=== PATIENT | male | born 1975 | race Caucasian/White ===

== ENCOUNTER → 2016-08-27 | Outpatient (CLI) | payer MEDICARE ==
[2016-08-27 15:44] LABS: CH 27.9; HCT 56.2 % (39.0-53.0); HDW 2.86; MCV 87.6 fL (80.0-100.0); Mean Platelet Volume 6.4; RBC 6.42 m/uL (4.30-5.90); RDW 14.4 % (11.5-15.5); WBC 9.3 k/uL (3.8-10.6)
[2016-08-27 15:45] LABS: ALT 36 U/L (21-72); AST 28 U/L (17-59); Alkaline Phosphatase 70 U/L (38-126); Anion Gap 6 mmol/L; Blood Urea Nitrogen 15 mg/dL (9-20); Calcium 9.2 mg/dL (8.4-10.2); Carbon Dioxide 29 mmol/L (22-30); Chloride 105 mmol/L (98-107); Glucose 84 mg/dL (74-99); Non-African American GFR(MDRD) >60 (>60 ml/min/1.73 sqM); Potassium 4.9 mmol/L (3.5-5.1); Sodium 140 mmol/L (137-145); Total Bilirubin 0.9 mg/dL (0.2-1.3); Total Protein 7.1 g/dL (6.3-8.2)
== END | disposition home or self-care (01) ==
LOC: LABWHC1 15:26
PROVIDERS: ATTEND Psychiatry & Neurology Pain Medicine
DX: Z79.891 Long term (current) use of opiate analgesic (principal)
CPT/HCPCS: 36415; 80053; 85027

== ENCOUNTER → 2017-07-08 | Outpatient (CLI) | payer MEDICARE ==
--- NOTE | 2017-07-09 08:33 | US ---
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 0.3 X 0.3 x 0.3 cm hypoechoic mixed nodule at the upper pole with well-defined margins; present with microcalcification. This nodule is wider as is tall and shows no intranodular vascularity. 2. 0.3 X 0.3 x 0.2 cm hyperechoic with posterior shadowing solid nodule at the mid pole with poorly defined margins. This nodule is wider than tall and shows no intranodular vascularity. ISTHMUS: Thickened measuring 1.6 cm possibly containing an isoechoic nodule measuring approximately 1 .3 x 1.3 cm there is ill-defined. This is seen on image 26 only. # of nodules measured in the isthm us: 0 Bilateral neck scanned, lymph node seen superior to right thyroid = 1.4 x 0.7 x 0.6cm and lymph node imaged superior to left thyroid = 1.9 x 1.2 x 0.6cm. IMPRESSION: 1. Enlarged thyroid gland with possible 1.6 cm isoechoic isthmus nodule seen on a single image only f or which short-term surveillance is recommended in 6-12 months. Other subcentimeter left-sided thyroi d nodules measure up to 0.3 cm and are of low suspicion.
== END | disposition home or self-care (01) ==
LOC: RADUSWWP 16:16
PROVIDERS: ATTEND Internal Medicine
DX: E04.2 Nontoxic multinodular goiter (principal)
CPT/HCPCS: 76536

== ENCOUNTER 2018-09-26 20:02 | Emergency (ER) | payer MEDICARE ==
[2018-09-26 20:22] VITALS: TEMP 98.4
--- NOTE | 2018-09-26 22:45 | ED ---
General Adult HPI - General Chief complaint: Extremity Injury, Lower Stated complaint: Leg Pain Time Seen by Provider: 09/26/18 21:15 Source: patient, family, RN notes reviewed, old records reviewed Mode of arrival: wheelchair Limitations: no limitations - History of Present Illness Initial comments: 43-year-old male patient presents ED after sustaining a reported hamstring strain. Patient was that he was moving a fridge when he felt a pull in his right hamstring. This occurred approximately 5 hours prior to evaluation at ER. Patient states that he does feel much better. Patient laboratory but difficulty. Patient does have some soreness and some tightness in his right hamstring region. Patient denies any other complaints, denies any other injury. Denies any chest pain shortness breath abdominal pain, nausea vomiting or diarrhea. Systemic: Pt denies fatigue, fever/chills, rash. Pt denies weakness, night sweats, weight loss. Neuro: Pt denies headache, visual disturbances, syncope or pre-syncope. HEENT: Pt denies ocular discharge or irritation, otalgia, rhinorrhea, pharyngitis or notable lymphadenopathy. Cardiopulmonary: Pt denies chest pain, SOB, heart palpitations, dyspnea on exertion. Abdominal/GI: Pt denies abdominal pain, n/v/d. : Pt denies dysuria, burning w/ urination, frequency/urgency. Denies new onset urinary or bowel incontinence. MSK: Pt denies loss of strength or function in extremities. Neuro: Pt denies new onset weakness, paresthesias. - Related Data Home Medications Medication Instructions Recorded Confirmed Clobetasol Propionate [Clobex 1 spray TOPICAL 03/06/16 [place] 0.05%] DULoxetine HCL [Cymbalta] 60 mg PO DAILY 03/06/16 03/06/16 Desmopressin Acetate [DDAVP] 0.1 mg PO 03/06/16 Fluticasone/Salmeterol [Advair 1 inhalation PO BID 03/06/16 03/06/16 250-50 [place]] Levothyroxine Sodium [Levoxyl] 88 mcg PO DAILY 03/06/16 03/06/16 Omeprazole 20 mg PO DAILY 03/06/16 03/06/16 Testosterone [Testopel] 75 mg INTRADERMA [id number] 03/06/16 03/06/16 Previous Rx's Medication Instructions Recorded HYDROcodone/APAP 5-325MG [[place] 5] 1 each PO Q4HR PRN #20 tab 03/06/16 Naproxen [Naprosyn] 500 mg PO Q12HR #24 tab 03/06/16 Allergies Allergy/AdvReac Type Severity Reaction Status Date / Time fluvastatin [From Lescol] Allergy Anaphylaxis Verified 09/26/18 20:22 prochlorperazine Allergy Unknown Verified 09/26/18 20:22 [From Compazine] Childhood Review of Systems ROS Statement: Those systems with pertinent positive or pertinent negative responses have been documented in the HPI. ROS Other: All systems not noted in ROS Statement are negative. Past Medical History Past Medical History: Diabetes Mellitus, Hypertension Additional Past Medical History / Comment(s): diabetes insipidus , histiocytosis X, low testosterone History of Any Multi-Drug Resistant Organisms: None Reported Past Surgical History: Appendectomy, Tonsillectomy Additional Past Surgical History / Comment(s): Port ( removal) cord still intact, jaw surgery Past Psychological History: Anxiety Smoking Status: Never smoker Past Alcohol Use History: Occasional Past Drug Use History: Marijuana General Exam - General Exam Comments Initial Comments: Constitutional: NAD, AOX3, Pt has pleasant affect. HEENT: NC/AT, trachea midline, neck supple, no lymphadenopathy. Posterior pharynx non erythematous, without exudates. External ears appear normal, without discharge. Mucous membranes moist. Eyes PERRLA, EOM intact. There is no scleral icterus. No pallor noted. Cardiopulmonary: RRR, no murmurs, rubs or gallops, no JVD noted. Lungs CTAB in anterior and posterior bartlett. No peripheral edema. Abdominal exam: Abdomen soft and non-distended. Abdomen non-tender to palpation in all 4 quadrants. Bowel sounds active in LLQ. No hepatosplenomegaly. No ecchymosis Neuro: CN II-XII grossly intact. No nuchal rigidity. MSK: Right hamstring region mildly tender to palpation, no ecchymoses. Full active range of motion of limp. Distal pulses intact and equal. Patient ambulatory without difficulty. No posterior calf tenderness bilaterally, homans sign negative bilaterally. Posterior tibialis and radial pulse +2 bilaterally. Sensation intact in upper and lower extremities. Full active ROM in upper and lower extremities, 5/5 stregnth. Limitations: no limitations Course Vital Signs 09/26/18 09/26/18 20:20 22:58 Temperature 98.4 F Pulse Rate 97 89 Respiratory 20 16 Rate Blood Pressure 136/88 123/86 O2 Sat by Pulse 98 97 Oximetry Medical Decision Making - Medical Decision Making 43-year-old male patient presents ED after sustaining a reported hamstring strain. Patient was that he was moving a fridge when he felt a pull in his right hamstring. This occurred approximately 5 hours prior to evaluation at ER. Patient states that he does feel much better. Patient laboratory but difficulty. Patient does have some soreness and some tightness in his right hamstring region. Patient denies any other complaints, denies any other injury. Denies any chest pain shortness breath abdominal pain, nausea vomiting or diarrhea. Patient vitals signs stable, afebrile. Physical exam displayed: Right hamstring region mildly tender to palpation, no ecchymoses. Full active range of motion of limp. Distal pulses intact and equal. Patient ambulatory without difficulty. Chair decision making patient comfortable with no imaging. Patient discharged, will use crutches will not bear weight on right lower extremity. Patient will follow-up with orthopedic consult. Patient return to ER if condition worsens. Disposition Clinical Impression: Muscle strain, Myalgia Disposition: HOME SELF-CARE Condition: Stable Instructions (If sedation given, give patient instructions): Muscle Strain (ED) Additional Instructions: Patient to adhere to previously discussed treatment plan and will take medication(s) as directed. Patient to follow up with PCP in 1-2 days. Patient to return to ED if symptoms do not improve. Follow-up with primary care provider orthopedic consult 1-2 days. Return to ER if condition worsens in any way. Limit weightbearing on right lower extremity. Use crutches. Is patient prescribed a controlled substance at d/c from ED?: No Referrals: Sotero Lozano MD [Primary Care Provider] - 1-2 days Amish Lazar MD [Medical Doctor] - 1-2 days
[2018-09-26 23:06] VITALS: BP 123/86; PULSE 89; RESP 16
== END 2018-09-26 22:58 | disposition home or self-care (01) ==
LOC: EC 20:02
DX: S76.311A Strain of muscle, fascia and tendon of the posterior muscle group at thigh level, right thigh, initial encounter (principal); E11.9 Type 2 diabetes mellitus without complications; F41.9 Anxiety disorder, unspecified; Z79.52 Long term (current) use of systemic steroids; Z79.890 Hormone replacement therapy; Z79.84 Long term (current) use of oral hypoglycemic drugs; Z79.899 Other long term (current) drug therapy; Z88.8 Allergy status to other drugs, medicaments and biological substances; X50.9XXA Other and unspecified overexertion or strenuous movements or postures, initial encounter; Y93.89 Activity, other specified
CPT/HCPCS: 99283

== ENCOUNTER → 2022-03-31 | Outpatient (CLI) | payer BC, MEDICARE ==
--- NOTE | 2022-04-01 09:28 | CA ---
Transthoracic Echo Report Name: Hank Payne Age: 47 Gender: M : 1975 Exam Date: 03/31/2022 15:09 Exam Location: [facility] Ht (in): 62 Wt (lb): 290 Ordering Physician: Wilfred Weinberg DO Attending/Referring Phys: Ruthy Macias [facility] [employer] Exp[employer] Maker Hand Jordyn Morel, ROM Procedure CPT: Indications: R01.1 CARDIAC MURMUR, UNSPECIFIED Cardiac Hx: Technical Quality: Fair Contrast 1: Total Dose (mL): Contrast 2: Total Dose (mL): MEASUREMENTS (Male / Female) Normal Values 2D ECHO LV Diastolic Diameter PLAX 4.3 cm 4.2 - 5.9 / 3.9 - 5.3 cm LV Systolic Diameter PLAX 2.9 cm IVS Diastolic Thickness 1.5 cm 0.6 - 1.0 / 0.6 - 0.9 cm LVPW Diastolic Thickness 1.8 cm 0.6 - 1.0 / 0.6 - 0.9 cm LV Relative Wall Thickness 0.8 RV Internal Dim ED PLAX 3.7 cm LA Systolic Diameter LX 4.0 cm 3.0 - 4.0 / 2.7 - 3.8 cm M-MODE Aortic Root Diameter MM 3.6 cm LA Systolic Diameter MM 3.5 cm LA Ao Ratio MM 1.0 MV E Point Septal Separation 0.1 cm AV Cusp Separation MM 2.4 cm DOPPLER TR Peak Velocity 393.1 cm/s TR Peak Gradient 61.8 mmHg Right Ventricular Systolic Press 66.0 mmHg FINDINGS Left Ventricle Moderately increased septal wall thickness. Left ventricular ejection fraction is estimated at 50 %. Right Ventricle Moderate right ventricular dilatation. Moderate to severe pulmonary hypertension. Right ventricular systolic pressure estimated at 66 mm hg. right ventricle has lot of trabeculations Right Atrium Normal right atrial size. Left Atrium Normal left atrial size. Mitral Valve Structurally normal mitral valve. Mild mitral regurgitation. Aortic Valve Trileaflet aortic valve. Tricuspid Valve Structurally normal tricuspid valve. Mild tricuspid regurgitation. Pulmonic Valve Structurally normal pulmonic valve. Pericardium Echo free space anterior to the right ventricle likely represents a fat pad. Aorta Normal size aortic root and proximal ascending aorta. CONCLUSIONS LV systolic function is fairly well-preserved. Right ventricle is enlarged with locked of trabeculations. There is moderate to severe pulmonary hypertension. Valve structures are normal. There is probably a fat pad but no clearcut pericardial effusion Previewed by: Dr. Anthony Jolley MD (Electronically Signed) Final Date: 01 April 2022 09:27
== END | disposition home or self-care (01) ==
LOC: RADECHMAIN 15:00
PROVIDERS: ATTEND Family Medicine
DX: I27.20 Pulmonary hypertension, unspecified (principal); R01.1 Cardiac murmur, unspecified
CPT/HCPCS: 93306

== ENCOUNTER 2024-03-03 20:28 | Inpatient (IN) | payer MEDICARE, BC ==
--- NOTE | 2024-03-03 20:39 | ED ---
SOB HPI - General Chief Complaint: Shortness of Breath Stated Complaint: Covid +, SOB Time Seen by Provider: 03/03/24 20:38 Source: patient, RN notes reviewed, old records reviewed Mode of arrival: ambulatory Limitations: no limitations - History of Present Illness Initial Comments: This is a 48-year-old male to the ER for evaluation known recent diagnosis of coronavirus and severe shortness of breath here in the emergency department. No history of asthma COPD or CHF Patient is found to have low oxygen here in the ER MD Complaint: shortness of breath, cough -: days(s) Radiation: back Severity: moderate Severity scale (1-10): 4 Quality: aching Consistency: constant Improves With: nothing Worsens With: nothing Known History Of: COPD, asthma Context: recent URI - Related Data Home Medications Medication Instructions Recorded Confirmed DULoxetine HCL [Cymbalta] 60 mg PO DAILY 03/06/16 03/04/24 Cholecalciferol (Vitamin D3) 125 mcg PO DAILY 07/01/22 03/04/24 [Vitamin D3 (125 MCG = 5,000 IU)] HYDROcodone/APAP 10-325MG [[place] 1 tab PO DAILY 07/01/22 03/04/24 10-325] Naproxen [Naprosyn] 500 mg PO DIRECTED PRN 07/01/22 03/04/24 Testosterone Cypionate 150 mg IM Q14D 07/01/22 03/04/24 [Depo-Testosterone] clonazePAM [KlonoPIN] 0.5 mg PO BID PRN 07/01/22 03/04/24 Clobetasol Lotion 0.05% Lotion 1 applic TOPICAL DAILY PRN 03/04/24 03/04/24 Desmopressin Intranasal [Ddavp 2 spr NASAL Q8H 03/04/24 03/04/24 Nasal [place]] Dextroamphetamine/Amphetamine 15 mg PO DAILY 03/04/24 03/04/24 [Adderall Xr 15 mg Capsule] Esomeprazole Magnesium [NexIUM 40 mg PO DAILY 03/04/24 03/04/24 24Hr] HYDROcodone/APAP 10-325MG [[place] 1 tab PO BID PRN 03/04/24 03/04/24 10-325] Lactulose [Constulose] 10 gm PO DAILY PRN 03/04/24 03/04/24 Levothyroxine Sodium 88 mcg PO DAILY 03/04/24 03/04/24 Losartan Potassium 100 mg PO DAILY 03/04/24 03/04/24 Metoclopramide [Reglan] 10 mg PO BID 03/04/24 03/04/24 Metoprolol Succinate (ER) [Toprol 50 mg PO DAILY 03/04/24 03/04/24 XL] Semaglutide [Ozempic] 1 mg SQ DIRECTED 03/04/24 03/04/24 Slow-Mag 2000mg 2,000 mg PO DAILY 03/04/24 03/04/24 bisacodyL [Dulcolax] 15 mg PO DAILY 03/04/24 03/04/24 guaiFENesin [Mucinex] 1,200 mg PO BID 03/04/24 03/04/24 Previous Rx's Medication Instructions Recorded dexAMETHasone ORAL [Hexadrol] 6 mg PO DAILY #6 tab 03/05/24 Allergies Allergy/AdvReac Type Severity Reaction Status Date / Time fluvastatin [From Lescol] Allergy Anaphylaxis Verified 03/04/24 11:23 prochlorperazine AdvReac "Maureen" Verified 03/04/24 11:23 [From Compazine] Rrbzluq-ETP-QpE Reductase AdvReac rhabdomyoly Verified 03/04/24 11:23 Inhibitor sis Review of Systems ROS Statement: Those systems with pertinent positive or pertinent negative responses have been documented in the HPI. ROS Other: All systems not noted in ROS Statement are negative. Past Medical History Past Medical History: Diabetes Mellitus, GERD/Reflux, Hyperlipidemia, Hypertension, Pneumonia, Thyroid Disorder Additional Past Medical History / Comment(s): See Dr Hernandez's H&P. 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 Low testosterone. Right ventricle enlarged. H Pylori X2. Hx rhabdomyolysis 10 yrs ago. History of Any Multi-Drug Resistant Organisms: None Reported Past Surgical History: Appendectomy, Tonsillectomy Additional Past Surgical History / Comment(s): Port in chest placed and then removed, but only able to remove head of sales, cord still intact, jaw surgery. Past Anesthesia/Blood Transfusion Reactions: No Reported Reaction, Motion Sickness Past Psychological History: Anxiety Smoking Status: Former smoker Past Alcohol Use History: Rare Past Drug Use History: Marijuana - Past Family History Father Family Medical History: Cancer Additional Family Medical History / Comment(s): Prostate cancer. General Exam General appearance: alert, in no apparent distress Head exam: Present: atraumatic, normocephalic, normal inspection Eye exam: Present: normal appearance, PERRL, EOMI. Absent: scleral icterus, conjunctival injection, periorbital swelling ENT exam: Present: normal exam, mucous membranes moist Neck exam: Present: normal inspection. Absent: tenderness, meningismus, lymphadenopathy Respiratory exam: Present: normal lung sounds bilaterally. Absent: respiratory distress, wheezes, rales, rhonchi, stridor Cardiovascular Exam: Present: regular rate, normal rhythm, normal heart sounds. Absent: systolic murmur, diastolic murmur, rubs, gallop, clicks GI/Abdominal exam: Present: soft, normal bowel sounds. Absent: distended, tenderness, guarding, rebound, rigid Extremities exam: Present: normal inspection, full ROM, normal capillary refill. Absent: tenderness, pedal edema, joint swelling, calf tenderness Back exam: Present: normal inspection Neurological exam: Present: alert, oriented X3, CN II-XII intact Psychiatric exam: Present: normal affect, normal mood Skin exam: Present: warm, dry, intact, normal color. Absent: rash Course Vital Signs 03/03/24 03/03/24 03/03/24 20:30 20:33 21:45 Temperature 98.5 F Pulse Rate 85 78 Respiratory 18 20 20 Rate Blood Pressure 129/77 118/78 O2 Sat by Pulse 89 L 94 L Oximetry - Reevaluation(s) Reevaluation #1: 03/03/24 20:55 Medical records reviewed Reevaluation #2: 03/03/24 21:39 No real improvement in symptoms here in the ER mildly improvement in oxygen level on supplemental O2 Reevaluation #3: 03/03/24 21:39 Patient informed of results and questions answered Reevaluation #4: Was pt. sent in by a medical professional or institution (, PA, STOPER, urgent care, hospital, or fci...) When possible be specific @ -no Did you speak to anyone other than the patient for history (EMS, parent, family, police, friend...)? What history was obtained from this source @ -no Did you review nursing and triage notes (agree or disagree)? Why? @ -agree Are old charts reviewed (outside hosp., previous admission, EMS record, old EKG, old radiological studies, urgent care reports/EKG's, fci records)? Report findings @ -yes Differential Diagnosis (chest pain, altered mental status, abdominal pain women, abdominal pain men, vaginal bleeding, weakness, fever, dyspnea, syncope, headache, dizziness, GI bleed, back pain, seizure, CVA, palpatations, mental health, musculoskeletal)? @ -prior EKG interpreted by me (3pts min.). @ -yes X-rays interpreted by me (1pt min.). @ -yes significant pulmonary edema CT interpreted by me (1pt min.). @ -Yes for significant pulmonary edema U/S interpreted by me (1pt. min.). @ -no What testing was considered but not performed or refused? (CT, X-rays, U/S, labs)? Why? @ -none What meds were considered but not given or refused? Why? @ -none Did you discuss the management of the patient with other professionals (professionals i.e. , PA, STOPER, lab, RT, psych nurse, long term care social worker, plastic parts fabricator, teacher, disciplinary hearing officer, case supervisor)? Give summary @ -no Was smoking cessation discussed for >3mins.? @ -no Was critical care preformed (if so, how long)? @ -yes31 Were there social determinants of health that impacted care today? How? (Homelessness, low income, unemployed, alcoholism, drug addiction, transportation, low edu. Level, literacy, decrease access to med. care, longterm, rehab)? @ -none Was there de-escalation of care discussed even if they declined (Discuss DNR or withdrawal of care, Hospice)? DNR status @ -no What co-morbidities impacted this encounter? (DM, HTN, Smoking, COPD, CAD, Cancer, CVA, ARF, Chemo, Hep., AIDS, mental health diagnosis, sleep apnea, morbid obesity)? @ -none Was patient admitted / discharged? Hospital course, mention meds given and route, prescriptions, significant lab abnormalities, going to OR and other pertinent info. @ - 48 male with positive coronavirus found to be hypoxic here in the ER multifocal pneumonia on x-ray Admitted Undiagnosed new problem with uncertain prognosis? @ -no Drug Therapy requiring intensive monitoring for toxicity (Heparin, Nitro, Insulin, Cardizem)? @ -no Were any procedures done? @ -no Diagnosis/symptom? @ - Acute, or Chronic, or Acute on Chronic? @ -Acute Uncomplicated (without systemic symptoms) or Complicated (systemic symptoms)? @ -Complicated Side effects of treatment? @ -no Exacerbation, Progression, or Severe Exacerbation? @ -exacerbation Poses a threat to life or bodily function? How? (Chest pain, [place], [place], pneumonia, PE, COPD, DKA, ARF, appy, cholecystitis, CVA, Diverticulitis, Homicidal, Suicidal, threat to staff... and all critical care pts) @ -yes respiratory failure and hypoxia Reevaluation #5: Differential Dyspnea: Coronary syndrome, arrhythmia, tamponade, asthma, COPD, pulmonary embolism, pneumonia, pneumothorax, pulmonary effusion, anaphylaxis, diabetic ketoacidosis, flailed chest, pulmonary contusion, diaphragmatic rupture, anemia, neuromuscular, this is not meant to be an all-inclusive list. - Consultations Consultation #1: Spoke with [facility] who agrees to admit this patient Medical Decision Making - Medical Decision Making 48 male with positive coronavirus found to be hypoxic here in the ER multifocal pneumonia on x-ray - Lab Data Result diagrams: 03/05/24 06:39 03/05/24 06:39 Lab Results 03/03/24 03/03/24 03/03/24 Range/Units 20:38 20:38 20:38 WBC 6.5 (3.8-10.6) k/uL RBC 5.65 (4.30-5.90) m/uL Hgb 16.5 (13.0-17.5) gm/dL Hct 52.1 (39.0-53.0) % MCV 92.3 (80.0-100.0) fL MCH 29.2 (25.0-35.0) pg MCHC 31.6 (31.0-37.0) g/dL RDW 13.9 (11.5-15.5) % Plt Count 225 (150-450) k/uL MPV 7.1 Neutrophils % 65 % Lymphocytes % 20 % Monocytes % 8 % Eosinophils % 4 % Basophils % 1 % Neutrophils # 4.2 (1.3-7.7) k/uL Lymphocytes # 1.3 (1.0-4.8) k/uL Monocytes # 0.5 (0-1.0) k/uL Eosinophils # 0.3 (0-0.7) k/uL Basophils # 0.0 (0-0.2) k/uL Hypochromasia Slight PT 10.2 (10.0-12.5) sec INR 0.9 (<1.2) APTT 30.7 H (22.0-30.0) sec D-Dimer 0.72 H (<0.60) mg/L FEU Sodium 139 (137-145) mmol/L Potassium 4.6 (3.5-5.1) mmol/L Chloride 107 (98-107) mmol/L Carbon Dioxide 28 (22-30) mmol/L Anion Gap 4 mmol/L BUN 19 (9-20) mg/dL Creatinine 0.93 (0.66-1.25) mg/dL Est GFR (CKD-EPI)AfAm >90 (>60 ml/min/1.73 sqM) Est GFR (CKD-EPI)NonAf >90 (>60 ml/min/1.73 sqM) Glucose 94 (74-99) mg/dL Plasma Lactic Acid Koby (0.7-2.0) mmol/L Calcium 8.7 (8.4-10.2) mg/dL Magnesium 2.0 (1.6-2.3) mg/dL Total Bilirubin 0.7 (0.2-1.3) mg/dL AST 34 (17-59) U/L ALT 22 (4-49) U/L Alkaline Phosphatase 82 (38-126) U/L Troponin I (0.000-0.034) ng/mL NT-Pro-B Natriuret Pep 167 pg/mL Total Protein 6.5 (6.3-8.2) g/dL Albumin 3.7 (3.5-5.0) g/dL 03/03/24 03/03/24 Range/Units 20:38 20:38 WBC (3.8-10.6) k/uL RBC (4.30-5.90) m/uL Hgb (13.0-17.5) gm/dL Hct (39.0-53.0) % MCV (80.0-100.0) fL MCH (25.0-35.0) pg MCHC (31.0-37.0) g/dL RDW (11.5-15.5) % Plt Count (150-450) k/uL MPV Neutrophils % % Lymphocytes % % Monocytes % % Eosinophils % % Basophils % % Neutrophils # (1.3-7.7) k/uL Lymphocytes # (1.0-4.8) k/uL Monocytes # (0-1.0) k/uL Eosinophils # (0-0.7) k/uL Basophils # (0-0.2) k/uL Hypochromasia PT (10.0-12.5) sec INR (<1.2) APTT (22.0-30.0) sec D-Dimer (<0.60) mg/L FEU Sodium (137-145) mmol/L Potassium (3.5-5.1) mmol/L Chloride (98-107) mmol/L Carbon Dioxide (22-30) mmol/L Anion Gap mmol/L BUN (9-20) mg/dL Creatinine (0.66-1.25) mg/dL Est GFR (CKD-EPI)AfAm (>60 ml/min/1.73 sqM) Est GFR (CKD-EPI)NonAf (>60 ml/min/1.73 sqM) Glucose (74-99) mg/dL Plasma Lactic Acid Koby 1.3 (0.7-2.0) mmol/L Calcium (8.4-10.2) mg/dL Magnesium (1.6-2.3) mg/dL Total Bilirubin (0.2-1.3) mg/dL AST (17-59) U/L ALT (4-49) U/L Alkaline Phosphatase (38-126) U/L Troponin I <0.012 (0.000-0.034) ng/mL NT-Pro-B Natriuret Pep pg/mL Total Protein (6.3-8.2) g/dL Albumin (3.5-5.0) g/dL - EKG Data -: EKG Interpreted by Me (EKG is sinus 81 [place] 131 QRS 136 QTc 430) - Radiology Data Radiology results: report reviewed (CXR positive for pneumonia), image reviewed Critical Care Time Critical Care Time: Yes Total Critical Care Time: 31 Disposition Clinical Impression: Coronavirus infection, Hypoxia, Multifocal pneumonia Disposition: ADMITTED IP TO THIS HOSP Condition: Good Is patient prescribed a controlled substance at d/c from ED?: No
[2024-03-03] MEDS: IPRATROPIUM-ALBUTEROL 3 ML NEB INHALATION STA (21:13)
[2024-03-03] MEDS: ALBUTEROL HFA INHALER INHALATION STA (21:15)
--- NOTE | 2024-03-03 21:15 | XR ---
EXAMINATION TYPE: XR chest 1V portable DATE OF EXAM: 03/03/2024 9:07 PM COMPARISON: Chest radiographs from 03/06/2016. CLINICAL INDICATION: Male, 48 years old with history of sob; [facility] TECHNIQUE: XR chest 1V portable Frontal view of the chest. FINDINGS: Lungs/Pleura: Scattered subtle reticular and hazy opacities. No evidence of pneumothorax, focal conso lidation or pleural effusion. Pulmonary vascularity: Unremarkable. Heart/mediastinum: Cardiomediastinal silhouette is unremarkable. Musculoskeletal: No acute osseous pathology. Other findings: None Lines/Tubes: Right central venous catheter with tip to be in the superior vena cava. IMPRESSION: Multifocal airspace opacities concerning for pneumonia. [facility], , 03/03/2024 9:13 PM
[2024-03-03 21:30] LABS: Basophils % (A) 1 %; Eosinophils # (A) 0.3 k/uL (0-0.7); Eosinophils % (A) 4 %; HCT 52.1 % (39.0-53.0); HGB 16.5 gm/dL (13.0-17.5); Hypochromasia Slight; Lymphocytes # (A) 1.3 k/uL (1.0-4.8); Lymphocytes % (A) 20 %; MCH 29.2 pg (25.0-35.0); MCHC 31.6 g/dL (31.0-37.0); MCV 92.3 fL (80.0-100.0); Mean Platelet Volume 7.1; Monocytes # (A) 0.5 k/uL (0-1.0); Monocytes % (A) 8 %; Neutrophils # (A) 4.2 k/uL (1.3-7.7); Neutrophils % (A) 65 %; Platelet Count 225 k/uL (150-450); RBC 5.65 m/uL (4.30-5.90); RDW 13.9 % (11.5-15.5); WBC 6.5 k/uL (3.8-10.6)
[2024-03-03] MEDS ORDERED: MORPHINE SULFATE 4 MG/ML SYRINGE IV PRN (21:36)
[2024-03-03] MEDS ORDERED: ONDANSETRON 4 MG/2 ML VIAL IVP PRN (21:36)
[2024-03-03] MEDS ORDERED: NALOXONE 0.4 MG/ML 1 ML VIAL IV PRN (21:36)
[2024-03-03] MEDS: SODIUM CHLORIDE 0.9% 1,000 ML IV STA (21:40)
[2024-03-03] MEDS: SODIUM CHLORIDE 0.9% 1,000 ML IV SCH (21:43)
[2024-03-03] MEDS: ACETAMINOPHEN TAB 500 MG TAB PO STA (21:50)
[2024-03-03] MEDS: DEXAMETHASONE SOD PHOSPHATE 10 MG/ML 1 ML VIAL IVP STA (21:51)
[2024-03-03] MEDS: KETOROLAC 15 MG/ML 1 ML VIAL IVP STA (21:51)
[2024-03-03 21:59] LABS: ALT 22 U/L (4-49); AST 34 U/L (17-59); African American GFR (CKD) >90 (>60 ml/min/1.73 sqM); Albumin 3.7 g/dL (3.5-5.0); Alkaline Phosphatase 82 U/L (38-126); Anion Gap 4 mmol/L; Blood Urea Nitrogen 19 mg/dL (9-20); Calcium 8.7 mg/dL (8.4-10.2); Carbon Dioxide 28 mmol/L (22-30); Chloride 107 mmol/L (98-107); Glucose 94 mg/dL (74-99); Non-African American GFR(CKD) >90 (>60 ml/min/1.73 sqM); Potassium 4.6 mmol/L (3.5-5.1); Sodium 139 mmol/L (137-145); Total Bilirubin 0.7 mg/dL (0.2-1.3); Total Protein 6.5 g/dL (6.3-8.2)
[2024-03-03 22:00] LABS: INR 0.9 (<1.2); Partial Thromboplastin Time 30.7 sec (22.0-30.0); Prothrombin Time 10.2 sec (10.0-12.5)
[2024-03-03 22:05] LABS: NT-Pro-B-Type Natriuretic Pept 167 pg/mL
--- NOTE | 2024-03-03 23:16 | CT ---
EXAMINATION TYPE: CT angio chest DATE OF EXAM: 03/03/2024 COMPARISON: NONE HISTORY: Patient states he is coming to facility with complaints of SOB. Patient was diagnosed with C OVID on Wednesday. CT DLP: 1181.6 mGycm. Automated Exposure Control for Dose Reduction was Utilized. CONTRAST: CTA scan of the thorax is performed with IV Contrast, patient injected with 100 mL of Isovue 370, pul monary embolism protocol. MIP Images are created on CT scanner and reviewed. FINDINGS: LUNGS: Reticular increased opacities bilateral upper lobes with some areas of groundglass opacity are present. Similar findings seen in the lower lungs greatest posterior left lower lobe. Mosaic attenua tion is present. No pleural effusion or pneumothorax. Focal consolidation central left lower lobe axi al image 102 MEDIASTINUM: Suboptimal study with most dense contrast in the SVC but no convincing CT evidence for a cute pulmonary embolism. There is bilateral hilar adenopathy. There is enlarged 4.2 x 1.5 cm prevascu lar lymph node axial image 46. Enlarged main pulmonary artery of 3.8 cm axial image 60 suggesting und erlying pulmonary artery hypertension. Some enhancement of the aorta without aneurysm or dissection. No cardiomegaly or pericardial effusion. OTHER: Bilateral gynecomastia. Slight scoliotic curvature with bridging osteophytes in the thoracic s pine noted. IMPRESSION: 1. Suboptimal study without acute pulmonary embolism. 2. Overall mosaic attenuation with bilateral areas of groundglass opacity could reflect infiltrate an d/or edema. There is area of more focal consolidation in the left lower lobe noted. There are bilater al upper lung reticular opacities and posterior left lower lobe reticular opacity could reflect atypi tosin infiltrate versus scarring. No prior for comparison. Abnormal thoracic adenopathy is favored reac tive. [facility], , 03/03/2024 11:14 PM
[2024-03-04] MEDS: DEXAMETHASONE SOD PHOSPHATE 4 MG/ML 1 ML VIAL IVP SCH (00:01)
[2024-03-04 06:15] LABS: Glucose,Whole Blood 171 mg/dL (70-110)
[2024-03-04] MEDS ORDERED: DEXTROSE 50% SYRINGE 50 ML IVP PRN ×2 (07:04)
[2024-03-04 07:05] LABS: Basophils % (A) 0 %; Eosinophils % (A) 0 %; HCT 49.8 % (39.0-53.0); HGB 15.9 gm/dL (13.0-17.5); Hypochromasia Slight; Lymphocytes # (A) 0.6 k/uL (1.0-4.8); Lymphocytes % (A) 13 %; MCH 29.4 pg (25.0-35.0); MCV 91.9 fL (80.0-100.0); Mean Platelet Volume 7.5; Monocytes # (A) 0.1 k/uL (0-1.0); Monocytes % (A) 3 %; Neutrophils # (A) 3.7 k/uL (1.3-7.7); Neutrophils % (A) 83 %; Platelet Count 226 k/uL (150-450); RBC 5.42 m/uL (4.30-5.90); WBC 4.4 k/uL (3.8-10.6)
[2024-03-04] MEDS ORDERED: HYDROcodone/APAP 10-325MG 1 EACH TAB PO PRN (07:05)
[2024-03-04] MEDS ORDERED: clonazePAM 0.5 MG TAB PO PRN (07:05)
[2024-03-04] MEDS ORDERED: NAPROXEN 250 MG TAB PO PRN (07:05)
--- NOTE | 2024-03-04 07:24 | XR ---
EXAMINATION TYPE: XR chest 1V DATE OF EXAM: 03/04/2024 6:54 AM COMPARISON: Chest radiographs from 03/03/2024 CLINICAL INDICATION: Male, 48 years old with history of hypoxia; TECHNIQUE: XR chest 1V Frontal view of the chest. FINDINGS: Lungs/Pleura: Multifocal airspace opacities. No evidence of pneumothorax or pleural effusion. Pulmonary vascularity: Pulmonary vascular congestion. Heart/mediastinum: Cardiomediastinal silhouette is prominent in size. Musculoskeletal: No acute osseous pathology. Other findings: None Lines/Tubes: Right internal jugular central venous catheter with distal tip at the cavoatrial junction. IMPRESSION: Similar multifocal airspace opacities. Correlate for atypical pneumonia versus pulmonary edema. [facility], Workstation: [id number], 03/04/2024 7:22 AM
[2024-03-04 08:06] LABS: ALT 21 U/L (4-49); AST 33 U/L (17-59); African American GFR (CKD) >90 (>60 ml/min/1.73 sqM); Albumin 3.6 g/dL (3.5-5.0); Alkaline Phosphatase 72 U/L (38-126); Anion Gap 6 mmol/L; Blood Urea Nitrogen 22 mg/dL (9-20); Calcium 8.5 mg/dL (8.4-10.2); Carbon Dioxide 24 mmol/L (22-30); Chloride 106 mmol/L (98-107); Glucose 170 mg/dL (74-99); Non-African American GFR(CKD) >90 (>60 ml/min/1.73 sqM); Potassium 5.3 mmol/L (3.5-5.1); Sodium 136 mmol/L (137-145); Total Bilirubin 0.5 mg/dL (0.2-1.3); Total Protein 6.2 g/dL (6.3-8.2)
[2024-03-04 09:04] LABS: Phosphorus 2.9 mg/dL (2.5-4.5)
[2024-03-04] MEDS: INSULIN ASPART (NovoLOG) 100 UNIT/ML VIAL SQ SCH (09:39)
[2024-03-04] MEDS ORDERED: BENZOCAINE/MENTHOL LOZENG 1 EACH LOZENGE MUCOUS MEM PRN (09:42)
[2024-03-04] MEDS ORDERED: DEXAMETHASONE SOD PHOSPHATE 10 MG/ML 1 ML VIAL IVP SCH (10:00)
[2024-03-04] MEDS: PANTOPRAZOLE 40 MG/10 ML VIAL IV SCH (10:52)
[2024-03-04] MEDS: ENOXAPARIN 40 MG/0.4 ML SYRINGE SQ SCH (10:52)
[2024-03-04] MEDS: DULoxetine HCL 60 MG CAPSULE.DR PO SCH (10:52)
[2024-03-04] MEDS: METOPROLOL SUCCINATE (ER) 50 MG TAB.ER.24H PO SCH (10:52)
[2024-03-04] MEDS: CHOLECALCIFEROL 125 MCG (5000 IU) TABLET PO SCH (10:52)
[2024-03-04] MEDS: LEVOTHYROXINE 88 MCG TAB PO SCH (10:54)
[2024-03-04 11:48] LABS: Glucose,Whole Blood 198 mg/dL (70-110)
[2024-03-04] MEDS: ALBUTEROL HFA INHALER INHALATION SCH (12:21)
[2024-03-04] MEDS: [UNRECOGNIZED DRUG - OTHER] MISCELLANE SCH (12:51)
[2024-03-04] MEDS: DESMOPRESSIN MISCELLANE SCH (12:51)
--- NOTE | 2024-03-04 13:01 | P.CNPUL ---
History of Present Illness Consult date: 03/04/24 Requesting physician: Bernard Tolbert Reason for consult: dyspnea, abnormal CXR/CT Chief complaint: Shortness of breath, weakness History of present illness: This is a 48-year-old male patient with a known history of diabetes mellitus, hypertension, hyperlipidemia, hypothyroidism, histiocytosis X with previous chemoradiation former smoker. He presented here to the emergency room yesterday with a 3-day history of increasing shortness of breath cough congestion weakness and fatigue. He tested positive for COVID on March 01, 2024. His is positive as well. This is third COVID infection. X-ray shows multifocal airspace opacities bilaterally. White count 4.4. Hemoglobin 15.9. Platelets 226. Sodium 136. Potassium 5.3. Bicarb 24. BUN 22. Creatinine 0.81. Glucose 170. Procalcitonin negative at 0.12. He is seen today in consultation. Currently sitting up in bed. Awake and alert in no acute distress. He is maintaining O2 saturations in the 90s on 2 L/min per nasal cannula. CT angiogram ruled out pulmonary embolism. There is overall mosaic attenuation with bilateral areas of groundglass opacities. He has been initiated on Decadron, Lovenox, vitamin supplements. Review of Systems REVIEW OF SYSTEMS: CONSTITUTIONAL: Positive for generalized weakness. Denies any recent significant weight loss or weight gain. EYES: Denies change in vision. EARS, NOSE, MOUTH, THROAT: Denies headaches, denies sore throat. CARDIOVASCULAR: Denies chest pain, palpitations or syncopal episodes. RESPIRATORY: Positive for shortness of breath, cough, congestion no hemoptysis. GASTROINTESTINAL: Denies change in appetite, denies abdominal pain GENITOURINARY: Denies hematuria, denies infections. MUSKULOSKELETAL: Denies pain, denies swelling. INTEGUMENTARY: Denies rash, denies eczema. NEUROLOGICAL: Denies recent memory loss, no recent seizure activity. PSYCHIATRIC: Denies anxiety, denies depression. HEMATOLOGIC/LYMPHATIC: Denies anemia, denies enlarged lymph nodes. 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 Low testosterone. Right ventricle enlarged. H Pylori X2. Hx rhabdomyolysis 10 yrs ago. scoliosis. Hypothyroid. History of Any Multi-Drug Resistant Organisms: None Reported Past Surgical History: Appendectomy, Tonsillectomy Additional Past Surgical History / Comment(s): Line from former chest port still in place. jaw surgery. Past Anesthesia/Blood Transfusion Reactions: Postoperative Nausea & Vomiting (PONV) Past Psychological History: Anxiety Smoking Status: Former smoker Past Alcohol Use History: None Reported Additional Past Alcohol Use History / Comment(s): Quit smoking 4 yrs ago. Past Drug Use History: Marijuana - Past Family History Father Family Medical History: Cancer Additional Family Medical History / Comment(s): Prostate cancer. Medications and Allergies Home Medications Medication Instructions Recorded Confirmed Type DULoxetine HCL [Cymbalta] 60 mg PO DAILY 03/06/16 03/04/24 History Cholecalciferol (Vitamin D3) 125 mcg PO DAILY 07/01/22 03/04/24 History [Vitamin D3 (125 MCG = 5,000 IU)] HYDROcodone/APAP 10-325MG [[place] 1 tab PO DAILY 07/01/22 03/04/24 History 10-325] Naproxen [Naprosyn] 500 mg PO DIRECTED PRN 07/01/22 03/04/24 History Testosterone Cypionate 150 mg IM Q14D 07/01/22 03/04/24 History [Depo-Testosterone] clonazePAM [KlonoPIN] 0.5 mg PO BID PRN 07/01/22 03/04/24 History Clobetasol Lotion 0.05% Lotion 1 applic TOPICAL DAILY PRN 03/04/24 03/04/24 History Desmopressin Intranasal [Ddavp 2 spr NASAL Q8H 03/04/24 03/04/24 History Nasal [place]] Dextroamphetamine/Amphetamine 15 mg PO DAILY 03/04/24 03/04/24 History [Adderall Xr 15 mg Capsule] Esomeprazole Magnesium [NexIUM 40 mg PO DAILY 03/04/24 03/04/24 History 24Hr] HYDROcodone/APAP 10-325MG [[place] 1 tab PO BID PRN 03/04/24 03/04/24 History 10-325] Lactulose [Constulose] 10 gm PO DAILY PRN 03/04/24 03/04/24 History Levothyroxine Sodium 88 mcg PO DAILY 03/04/24 03/04/24 History Losartan Potassium 100 mg PO DAILY 03/04/24 03/04/24 History Metoclopramide [Reglan] 10 mg PO BID 03/04/24 03/04/24 History Metoprolol Succinate (ER) [Toprol 50 mg PO DAILY 03/04/24 03/04/24 History Xl] Semaglutide [Ozempic] 1 mg SQ DIRECTED 03/04/24 03/04/24 History Slow-Mag 2000mg 2,000 mg PO DAILY 03/04/24 03/04/24 History bisacodyL [Dulcolax] 15 mg PO DAILY 03/04/24 03/04/24 History guaiFENesin [Mucinex] 1,200 mg PO BID 03/04/24 03/04/24 History Allergies Allergy/AdvReac Type Severity Reaction Status Date / Time fluvastatin [From Lescol] Allergy Anaphylaxis Verified 03/04/24 11:23 prochlorperazine AdvReac "Maureen" Verified 03/04/24 11:23 [From Compazine] Vacudrg-OGC-UxH Reductase AdvReac rhabdomyoly Verified 03/04/24 11:23 Inhibitor sis Physical Exam Vitals: Vital Signs Temp Pulse Pulse Resp BP BP Pulse Ox 03/04/24 11:20 98.0 F 66 17 131/80 95 03/04/24 08:00 98.4 F 69 19 129/75 94 L 03/04/24 04:30 72 22 155/91 93 L 03/03/24 23:50 98.5 F 73 18 125/81 97 03/03/24 23:29 98.1 F 87 18 113/71 94 L 03/03/24 21:45 78 20 118/78 94 L 03/03/24 20:33 20 03/03/24 20:30 98.5 F 85 18 129/77 89 L Intake and Output 03/03/24 03/04/24 03/04/24 22:59 06:59 14:59 Intake Total 540 Balance 540 Intake: Oral 540 Other: Voiding Method Toilet Toilet Urinal Urinal # Voids 1 0 Weight 127.913 kg 127.2 kg GENERAL EXAM: Alert, pleasant 48-year-old male, on 2 L nasal cannula, comfortable in no apparent distress. HEAD: Normocephalic. EYES: Normal reaction of pupils, equal size. NOSE: Clear with pink turbinates. THROAT: No erythema or exudates. NECK: No masses, no JVD. CHEST: No chest wall deformity. LUNGS: Equal air entry with coarse rhonchi bilaterally. CVS: S1 and S2 normal with no audible murmur, regular rhythm. ABDOMEN: No hepatosplenomegaly, normal bowel sounds, no guarding or rigidity. SPINE: No scoliosis or deformity SKIN: No rashes CENTRAL NERVOUS SYSTEM: No focal deficits, tone is normal in all 4 extremities. EXTREMITIES: There is no peripheral edema. No clubbing, no cyanosis. Peripheral pulses are intact. Results - Laboratory Findings CBC and BMP: 03/04/24 06:20 03/04/24 06:20 PT/INR, D-dimer PT 10.2 sec (10.0-12.5) 03/03/24 20:38 INR 0.9 (<1.2) 03/03/24 20:38 D-Dimer 0.72 mg/L FEU (<0.60) H 03/03/24 20:38 Abnormal lab findings: Abnormal Labs 03/03/24 03/04/24 03/04/24 20:38 06:13 06:20 Lymphocytes # 0.6 L APTT 30.7 H D-Dimer 0.72 H Sodium Potassium BUN Glucose POC Glucose (mg/dL) 171 H Total Protein 03/04/24 03/04/24 06:20 11:45 Lymphocytes # APTT D-Dimer Sodium 136 L Potassium 5.3 H BUN 22 H Glucose 170 H POC Glucose (mg/dL) 198 H Total Protein 6.2 L - Diagnostic Findings Chest x-ray: image reviewed CT scan - chest: image reviewed Assessment and Plan Assessment: Acute hypoxemic respiratory failure secondary to acute COVID-19 infection/pneumonia. History of histiocytosis X with lung involvement. Treated with chemoradiation. Lung involvement developed at age 34 Former smoker Diabetes mellitus Hyperlipidemia Hypertension Both thyroidism Plan: The patient was seen and evaluated Imaging, labs and medications reviewed Continue Decadron Continue Lovenox Continue vitamin supplements May be considered for remdesivir based on his clinical progression We will continue to follow and make further recommendations based on his clinical status I have personally seen and examined the patient, performed the documentation and the assessment and plan as written. Number of minutes spent on the visit: 20 Dictation was produced using [employer] dictation software. Please excuse any grammatical, word or spelling errors.
[2024-03-04] MEDS ORDERED: LACTULOSE 20 GM/30 ML CUP PO PRN (13:49)
--- NOTE | 2024-03-04 13:52 | P.HPIM ---
History of Present Illness H&P Date: 03/04/24 History of present illness; patient is a 48-year-old gentleman with past medical history significant for hypertension, diabetes mellitus, hyperlipidemia who was recently diagnosed with COVID-19 on Wednesday coming to the hospital for shortness of breath. Patient stated that he was all right a few days ago when he started noticing getting short of breath. Patient was feeling sick. Denied any nausea or vomiting. Patient was complaining of lethargy and weakness. Patient denies any chest pain. There is no complaint orthopnea and PND. Patient was diagnosed with COVID-19 infection on Wednesday. Over the following days patient shortness of breath worsened, he was getting short of breath at rest as on exertion. Because of this worsening shortness of breath, patient came to the ER Initial lab work done in the ER showed WB 6.5, hemoglobin 16.5, platelet count 225, D-dimer 0.72, sodium 139, potassium 4.6, BUN 19, creatinine 0.93, calcium 8.7, bilirubin 0.7, AST 34, ALT 22, troponin 0.012, proBNP 167 procalcitonin 0.12 EKG done in the ER showed heart rate of , no ST segment elevation or depression seen, no T-wave inversions seen. Chest x-ray done in the ER showed multifocal airspace opacities concerning for pneumonia CT chest PE protocol done showed no acute pulmonary embolism, bilateral areas of groundglass opacities Patient admitted to internal medicine service REVIEW OF SYSTEMS: CONSTITUTIONAL: No fever, no malaise, no fatigue. HEENT: No recent visual problems or hearing problems. Denied any sore throat. CARDIOVASCULAR: As mentioned above PULMONARY: As mentioned above GASTROINTESTINAL: No diarrhea, no nausea, no vomiting, no abdominal pain. NEUROLOGICAL: No headaches, no weakness, no numbness. HEMATOLOGICAL: Denies any bleeding or petechiae. GENITOURINARY: Denies any burning micturition, frequency, or urgency. MUSCULOSKELETAL/RHEUMATOLOGICAL: Denies any joint pain, swelling, or any muscle pain. ENDOCRINE: Denies any polyuria or polydipsia. The rest of the 14-point review of systems is negative. PHYSICAL EXAMINATION: GENERAL: The patient is alert and oriented x3, not in any acute distress. Ill looking HEENT: Pupils are round and equally reacting to light. EOMI. No scleral icterus. No conjunctival pallor. Normocephalic, atraumatic. No pharyngeal erythema. No thyromegaly. CARDIOVASCULAR: S1 and S2 present. No murmurs, rubs, or gallops. PULMONARY: Chest is clear to auscultation, no wheezing or crackles. ABDOMEN: Soft, nontender, nondistended, normoactive bowel sounds. No palpable organomegaly. MUSCULOSKELETAL: No joint swelling or deformity. EXTREMITIES: No cyanosis, clubbing, or pedal edema. NEUROLOGICAL: Gross neurological examination did not reveal any focal deficits. SKIN: No rashes. Assessment and plan Acute hypoxemic respiratory failure COVID-19 pneumonia Hypertension Hyperlipidemia Diabetes mellitus Monitor vital signs Monitor CBC Monitor CMP Continue telemetry monitoring Ordered oxygen supplementation Ordered aggressive bronchopulmonary hygiene Ordered Mucinex Ordered breathing treatments Ordered IV Decadron Resume home meds Consult pulmonary Consult ID Labs and medication were reviewed.. Continue same treatment. Continue with symptomatic treatment. Resume home medication. Monitor labs and vitals. DVT and GI prophylaxis. Further recommendations as per clinical course of the patient Dictation was produced using [employer] dictation software. please excuse any grammatical, word or spelling errors. 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 Low testosterone. Right ventricle enlarged. H Pylori X2. Hx rhabdomyolysis 10 yrs ago. scoliosis. Hypothyroid. History of Any Multi-Drug Resistant Organisms: None Reported Past Surgical History: Appendectomy, Tonsillectomy Additional Past Surgical History / Comment(s): Line from former chest port still in place. jaw surgery. Past Anesthesia/Blood Transfusion Reactions: Postoperative Nausea & Vomiting (PONV) Past Psychological History: Anxiety Smoking Status: Former smoker Past Alcohol Use History: None Reported Additional Past Alcohol Use History / Comment(s): Quit smoking 4 yrs ago. Past Drug Use History: Marijuana - Past Family History Father Family Medical History: Cancer Additional Family Medical History / Comment(s): Prostate cancer. Medications and Allergies Home Medications Medication Instructions Recorded Confirmed Type DULoxetine HCL [Cymbalta] 60 mg PO DAILY 03/06/16 03/04/24 History Cholecalciferol (Vitamin D3) 125 mcg PO DAILY 07/01/22 03/04/24 History [Vitamin D3 (125 MCG = 5,000 IU)] HYDROcodone/APAP 10-325MG [[place] 1 tab PO DAILY 07/01/22 03/04/24 History 10-325] Naproxen [Naprosyn] 500 mg PO DIRECTED PRN 07/01/22 03/04/24 History Testosterone Cypionate 150 mg IM Q14D 07/01/22 03/04/24 History [Depo-Testosterone] clonazePAM [KlonoPIN] 0.5 mg PO BID PRN 07/01/22 03/04/24 History Clobetasol Lotion 0.05% Lotion 1 applic TOPICAL DAILY PRN 03/04/24 03/04/24 History Desmopressin Intranasal [Ddavp 2 spr NASAL Q8H 03/04/24 03/04/24 History Nasal [place]] Dextroamphetamine/Amphetamine 15 mg PO DAILY 03/04/24 03/04/24 History [Adderall Xr 15 mg Capsule] Esomeprazole Magnesium [NexIUM 40 mg PO DAILY 03/04/24 03/04/24 History 24Hr] HYDROcodone/APAP 10-325MG [[place] 1 tab PO BID PRN 03/04/24 03/04/24 History 10-325] Lactulose [Constulose] 10 gm PO DAILY PRN 03/04/24 03/04/24 History Levothyroxine Sodium 88 mcg PO DAILY 03/04/24 03/04/24 History Losartan Potassium 100 mg PO DAILY 03/04/24 03/04/24 History Metoclopramide [Reglan] 10 mg PO BID 03/04/24 03/04/24 History Metoprolol Succinate (ER) [Toprol 50 mg PO DAILY 03/04/24 03/04/24 History Xl] Semaglutide [Ozempic] 1 mg SQ DIRECTED 03/04/24 03/04/24 History Slow-Mag 2000mg 2,000 mg PO DAILY 03/04/24 03/04/24 History bisacodyL [Dulcolax] 15 mg PO DAILY 03/04/24 03/04/24 History guaiFENesin [Mucinex] 1,200 mg PO BID 03/04/24 03/04/24 History Allergies Allergy/AdvReac Type Severity Reaction Status Date / Time fluvastatin [From Lescol] Allergy Anaphylaxis Verified 03/04/24 11:23 prochlorperazine AdvReac "Maureen" Verified 03/04/24 11:23 [From Compazine] Qnobqfr-VWM-JwS Reductase AdvReac rhabdomyoly Verified 03/04/24 11:23 Inhibitor sis Physical Exam Vitals: Vital Signs Temp Pulse Pulse Resp BP BP Pulse Ox 03/04/24 04:30 72 22 155/91 93 L 03/03/24 23:50 98.5 F 73 18 125/81 97 03/03/24 23:29 98.1 F 87 18 113/71 94 L 03/03/24 21:45 78 20 118/78 94 L 03/03/24 20:33 20 03/03/24 20:30 98.5 F 85 18 129/77 89 L Intake and Output 03/03/24 03/04/24 03/04/24 22:59 06:59 14:59 Intake Total 540 Balance 540 Intake: Oral 540 Other: Voiding Method Toilet Toilet Urinal Urinal # Voids 1 Weight 127.913 kg 127.2 kg Results CBC & Chem 7: 03/04/24 06:20 03/04/24 06:20 Labs: Abnormal Lab Results - Last 24 Hours (Table) 03/03/24 03/04/24 03/04/24 Range/Units 20:38 06:13 06:20 Lymphocytes # 0.6 L (1.0-4.8) k/uL APTT 30.7 H (22.0-30.0) sec D-Dimer 0.72 H (<0.60) mg/L FEU Sodium (137-145) mmol/L Potassium (3.5-5.1) mmol/L BUN (9-20) mg/dL Glucose (74-99) mg/dL POC Glucose (mg/dL) 171 H (70-110) mg/dL Total Protein (6.3-8.2) g/dL 03/04/24 Range/Units 06:20 Lymphocytes # (1.0-4.8) k/uL APTT (22.0-30.0) sec D-Dimer (<0.60) mg/L FEU Sodium 136 L (137-145) mmol/L Potassium 5.3 H (3.5-5.1) mmol/L BUN 22 H (9-20) mg/dL Glucose 170 H (74-99) mg/dL POC Glucose (mg/dL) (70-110) mg/dL Total Protein 6.2 L (6.3-8.2) g/dL Thrombosis Risk Factor Assmnt - Choose All That Apply Each Factor Represents 1 point: Age 41-60 years, Obesity (BMI >25) Thrombosis Risk Factor Assessment Total Risk Factor Score: 2 Thrombosis Risk Factor Assessment Level: Low Risk
[2024-03-04 16:49] LABS: Glucose,Whole Blood 163 mg/dL (70-110)
[2024-03-04] MEDS: LOSARTAN 50 MG TAB PO SCH (19:14)
[2024-03-04] MEDS: BISACODYL PO SCH (19:14)
[2024-03-04 20:11] LABS: Glucose,Whole Blood 193 mg/dL (70-110)
[2024-03-04] MEDS: guaiFENesin 600 MG TABLET.ER PO SCH (20:17)
[2024-03-04] MEDS: METOCLOPRAMIDE 10 MG TAB PO SCH (20:18)
[2024-03-04] MEDS: MELATONIN 5 MG TABLET PO SCH (20:18)
--- NOTE | 2024-03-04 22:49 | P.CONS ---
History of Present Illness - Reason for Consult Consult date: 03/04/24 COVID-19 pneumonia Requesting physician: Tony Moreland - Chief Complaint Shortness of breath cough x few days - History of Present Illness Patient is a 48-year-old male with a past medical history significant for diabetes mellitus hypertension hyperlipidemia pneumonia hypothyroidism did have a 2 previous episode of COVID-19 infection started getting sick Wednesday of last week when he is mostly URI symptoms subsequently did have cough which has been moderate intensity but mostly dry in nature and some shortness of breath patient did do the home COVID test which was positive subsequently went to the urgent care yesterday with the patient was noted to be hypoxic and advised to go to the ER patient on presentation to the hospital was afebrile and no fever have been recorded subsequently patient was not tachycardic or hypotensive he was hypoxic with O2 sats of 89% however is currently on a 2 L nasal cannula oxygen patient did have normal white count of 6.5 creatinine 0.93 Pro-Tomás 0.12 liver enzymes are normal chest x-ray multifocal airspace opacity concerning for pneumonia he did have a CT angiogram of the chest suboptimal study without acute EP and there was evidence of groundglass opacity concerning for edema versus atypical pneumonia patient has been admitted to hospital infectious was consulted for further management patient mention feeling better since he had been admitted to the hospital Review of Systems Positive point and negatives has been mentioned in the HPI, complete review of systems was performed and all other systems are negative 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 Low testosterone. Right ventricle enlarged. H Pylori X2. Hx rhabdomyolysis 10 yrs ago. scoliosis. Hypothyroid. History of Any Multi-Drug Resistant Organisms: None Reported Past Surgical History: Appendectomy, Tonsillectomy Additional Past Surgical History / Comment(s): Line from former chest port still in place. jaw surgery. Past Anesthesia/Blood Transfusion Reactions: Postoperative Nausea & Vomiting (PONV) Past Psychological History: Anxiety Smoking Status: Former smoker Past Alcohol Use History: None Reported Additional Past Alcohol Use History / Comment(s): Quit smoking 4 yrs ago. Past Drug Use History: Marijuana - Past Family History Father Family Medical History: Cancer Additional Family Medical History / Comment(s): Prostate cancer. Medications and Allergies Home Medications Medication Instructions Recorded Confirmed Type DULoxetine HCL [Cymbalta] 60 mg PO DAILY 03/06/16 03/04/24 History Cholecalciferol (Vitamin D3) 125 mcg PO DAILY 07/01/22 03/04/24 History [Vitamin D3 (125 MCG = 5,000 IU)] HYDROcodone/APAP 10-325MG [[place] 1 tab PO DAILY 07/01/22 03/04/24 History 10-325] Naproxen [Naprosyn] 500 mg PO DIRECTED PRN 07/01/22 03/04/24 History Testosterone Cypionate 150 mg IM Q14D 07/01/22 03/04/24 History [Depo-Testosterone] clonazePAM [KlonoPIN] 0.5 mg PO BID PRN 07/01/22 03/04/24 History Clobetasol Lotion 0.05% Lotion 1 applic TOPICAL DAILY PRN 03/04/24 03/04/24 History Desmopressin Intranasal [Ddavp 2 spr NASAL Q8H 03/04/24 03/04/24 History Nasal [place]] Dextroamphetamine/Amphetamine 15 mg PO DAILY 03/04/24 03/04/24 History [Adderall Xr 15 mg Capsule] Esomeprazole Magnesium [NexIUM 40 mg PO DAILY 03/04/24 03/04/24 History 24Hr] HYDROcodone/APAP 10-325MG [[place] 1 tab PO BID PRN 03/04/24 03/04/24 History 10-325] Lactulose [Constulose] 10 gm PO DAILY PRN 03/04/24 03/04/24 History Levothyroxine Sodium 88 mcg PO DAILY 03/04/24 03/04/24 History Losartan Potassium 100 mg PO DAILY 03/04/24 03/04/24 History Metoclopramide [Reglan] 10 mg PO BID 03/04/24 03/04/24 History Metoprolol Succinate (ER) [Toprol 50 mg PO DAILY 03/04/24 03/04/24 History XL] Semaglutide [Ozempic] 1 mg SQ DIRECTED 03/04/24 03/04/24 History Slow-Mag 2000mg 2,000 mg PO DAILY 03/04/24 03/04/24 History bisacodyL [Dulcolax] 15 mg PO DAILY 03/04/24 03/04/24 History guaiFENesin [Mucinex] 1,200 mg PO BID 03/04/24 03/04/24 History dexAMETHasone ORAL [Hexadrol] 6 mg PO DAILY #6 tab 03/05/24 Rx Allergies Allergy/AdvReac Type Severity Reaction Status Date / Time fluvastatin [From Lescol] Allergy Anaphylaxis Verified 03/04/24 11:23 prochlorperazine AdvReac "Maureen" Verified 03/04/24 11:23 [From Compazine] Fusxmph-OUW-EjC Reductase AdvReac rhabdomyoly Verified 03/04/24 11:23 Inhibitor sis Physical Exam Vitals: Vital Signs Temp Pulse Pulse Resp BP BP Pulse Ox 03/04/24 11:20 98.0 F 66 17 131/80 95 03/04/24 08:00 98.4 F 69 19 129/75 94 L 03/04/24 04:30 72 22 155/91 93 L 03/03/24 23:50 98.5 F 73 18 125/81 97 03/03/24 23:29 98.1 F 87 18 113/71 94 L 03/03/24 21:45 78 20 118/78 94 L 03/03/24 20:33 20 03/03/24 20:30 98.5 F 85 18 129/77 89 L Intake and Output 03/03/24 03/04/24 03/04/24 22:59 06:59 14:59 Intake Total 540 Balance 540 Intake: Oral 540 Other: Voiding Method Toilet Toilet Urinal Urinal # Voids 1 0 Weight 127.913 kg 127.2 kg GENERAL DESCRIPTION: Middle-aged male lying in bed, no distress. No tachypnea or accessory muscle of respiration use. HEENT: Shows Pallor , no scleral icterus. Oral mucous membrane is dry. No pharyngeal erythema or thrush NECK: Trachea central, no thyromegaly. LUNGS: Unlabored breathing. Decreased intensity of breath sounds,No wheeze HEART: S1, S2, regular rate and rhythm. No loud murmur ABDOMEN: Soft, no tenderness , guarding or rigidity, no organomegaly EXTREMITIES: No edema of feet. SKIN: No rash, no masses palpable. NEUROLOGICAL: The patient is awake, alert, oriented x3, mood and affect normal. Results CBC & Chem 7: 03/05/24 06:39 03/05/24 06:39 Labs: Abnormal Lab Results - Last 24 Hours (Table) 03/03/24 03/04/24 03/04/24 Range/Units 20:38 06:13 06:20 Lymphocytes # 0.6 L (1.0-4.8) k/uL APTT 30.7 H (22.0-30.0) sec D-Dimer 0.72 H (<0.60) mg/L FEU Sodium (137-145) mmol/L Potassium (3.5-5.1) mmol/L BUN (9-20) mg/dL Glucose (74-99) mg/dL POC Glucose (mg/dL) 171 H (70-110) mg/dL Total Protein (6.3-8.2) g/dL 03/04/24 Range/Units 06:20 Lymphocytes # (1.0-4.8) k/uL APTT (22.0-30.0) sec D-Dimer (<0.60) mg/L FEU Sodium 136 L (137-145) mmol/L Potassium 5.3 H (3.5-5.1) mmol/L BUN 22 H (9-20) mg/dL Glucose 170 H (74-99) mg/dL POC Glucose (mg/dL) (70-110) mg/dL Total Protein 6.2 L (6.3-8.2) g/dL Assessment and Plan (1) Pneumonia due to COVID-19 virus Current Visit: Yes Status: Acute Code(s): U07.1 - COVID-19; J12.82 - PNEUMONIA DUE TO CORONAVIRUS DISEASE 2018 SNOMED Code(s): 612061523254761128 Plan: 1patient presented to hospital with increasing shortness of breath cough and was hypoxic in the outpatient setting secondary to acute COVID-19 pneumonia as seen on the chest x-ray as well as CT angiogram of the chest however the patient seem to have shown rather quick improvement and is down to only 2 L cannula oxygen and is feeling better hence we will recommend to continue with current supportive treatment and hold on adding a remdesivir at this point 2-patient continued on the dexamethasone Lovenox will add zinc and ascorbic acid 3-droplet isolation Multiple question concern answered and care discussed with the [employer] We will follow on clinical condition and cultures to further adjust medication if needed Thank you for this consultation we will follow the patient along with you Dictation was produced using [employer] dictation software. please excuse any grammatical, word or spelling errors. Time with Patient: Greater than 30
[2024-03-04] MEDS: ACETAMINOPHEN TAB 325 MG TAB PO PRN (23:50)
[2024-03-04] MEDS: HYDROcodone/APAP 10-325MG 1 EACH TAB PO PRN (23:51)
[2024-03-05 05:54] LABS: Glucose,Whole Blood 133 mg/dL (70-110)
[2024-03-05 07:19] LABS: HGB 14.7 gm/dL (13.0-17.5); MCH 30.1 pg (25.0-35.0); MCHC 33.4 g/dL (31.0-37.0); MCV 90.1 fL (80.0-100.0); Mean Platelet Volume 7.7; Platelet Count 258 k/uL (150-450); Poikilocytosis Slight; RBC 4.88 m/uL (4.30-5.90); RDW 13.8 % (11.5-15.5); WBC 12.2 k/uL (3.8-10.6)
[2024-03-05 07:43] LABS: African American GFR (CKD) >90 (>60 ml/min/1.73 sqM); Anion Gap 4 mmol/L; Blood Urea Nitrogen 22 mg/dL (9-20); Calcium 8.4 mg/dL (8.4-10.2); Carbon Dioxide 27 mmol/L (22-30); Chloride 104 mmol/L (98-107); Glucose 124 mg/dL (74-99); Non-African American GFR(CKD) >90 (>60 ml/min/1.73 sqM); Potassium 4.6 mmol/L (3.5-5.1); Sodium 135 mmol/L (137-145)
[2024-03-05] MEDS: ZINC SULFATE 220 MG CAP PO SCH (10:08)
[2024-03-05] MEDS: ASCORBIC ACID 500 MG TAB PO SCH (10:08)
[2024-03-05] MEDS: bisacodyL 5 MG TABLET.DR PO SCH (10:09)
[2024-03-05] MEDS: MAGNESIUM OXIDE 400 MG TAB PO SCH (10:10)
[2024-03-05] MEDS: HYDROcodone/APAP 10-325MG 1 EACH TAB PO SCH (10:11)
[2024-03-05] MEDS: DEXAMETHASONE SOD PHOSPHATE 10 MG/ML 1 ML VIAL IVP SCH (10:13)
[2024-03-05] MEDS: Semaglutide [Ozempic] 0.25 MG/0.2 ML Each SQ SCH (10:29)
[2024-03-05] MEDS: PATIENT'S OWN (Dextroamphetamine/Amphetamine [Adderall Xr 15 Mg Capsule] 15 MG Cap.Er PO SCH (10:29)
[2024-03-05 11:12] LABS: Glucose,Whole Blood 168 mg/dL (70-110)
[2024-03-05 12:17] VITALS: RESP 16
--- NOTE | 2024-03-05 12:29 | P.PN ---
Subjective Progress Note Date: 03/05/24 Principal diagnosis: Coronavirus infection. This is a 48-year-old male patient with a known history of diabetes mellitus, hypertension, hyperlipidemia, hypothyroidism, histiocytosis X with previous chemoradiation former smoker. He presented here to the emergency room yesterday with a 3-day history of increasing shortness of breath cough congestion weakness and fatigue. He tested positive for COVID on March 01, 2024. His is positive as well. This is third COVID infection. X-ray shows multifocal airspace opacities bilaterally. White count 4.4. Hemoglobin 15.9. Platelets 226. Sodium 136. Potassium 5.3. Bicarb 24. BUN 22. Creatinine 0.81. Glucose 170. Procalcitonin negative at 0.12. He is seen today in consultation. Currently sitting up in bed. Awake and alert in no acute distress. He is maintaining O2 saturations in the 90s on 2 L/min per nasal cannula. CT angiogram ruled out pulmonary embolism. There is overall mosaic attenuation with bilateral areas of groundglass opacities. He has been initiated on Decadron, Lovenox, vitamin supplements. Progress note dated March 05, 2024. The patient is seen today in room 373. He is on room air. Is getting Decadron IV. That can be converted to p.o. The patient is doing very well, and would like to be discharged home. The patient has a history of diabetes, hypertension, hyperlipidemia, hypothyroidism, histiocytosis X, and is an ex- smoker. Current laboratory data includes a white count 12.2, hemoglobin 14.7, hematocrit 44, platelet count 258,000. Sodium 135, potassium 4.6, chlorides 104, CO2 27, BUN 22, creatinine 0.75. Glucose is 168. Calcium is 8.4. Objective - Vital Signs Vital signs: Vital Signs Temp 98.5 F 03/05/24 09:55 Pulse 81 03/05/24 09:55 Resp 16 03/05/24 09:55 BP 145/71 03/05/24 09:55 Pulse Ox 92 L 03/05/24 09:55 FiO2 Intake & Output 03/04/24 03/05/24 03/05/24 19:59 06:59 18:59 Intake Total Balance Weight Intake: Oral Other: Voiding Method Toilet Urinal # Voids - Exam No acute distress, oriented 3. Currently on room air. No respiratory distress. HEENT examination is grossly unremarkable. Mucous membranes are moist. No oral lesions. Neck supple. Full range of motion. No adenopathy thyromegaly or neck vein distention. Cardiovascular examination reveals regular rhythm rate. S1-S2 normal. No S3 or S4. No discernible murmur noted. Lungs reveal mostly clear breath sounds. Minimal rhonchi. No wheezes. No crackles. Breath sounds equal bilaterally. Abdomen soft bowel sounds are heard. No masses or tenderness. Extremities are intact. No cyanosis clubbing or edema. Skin is without rash or lesion. Neurologic examination is brief but nonfocal. - Labs CBC & Chem 7: 03/05/24 06:39 03/05/24 06:39 Labs: Abnormal Lab Results - Last 24 Hours (Table) 03/04/24 03/04/24 03/05/24 Range/Units 16:47 20:09 05:52 WBC (3.8-10.6) k/uL Sodium (137-145) mmol/L BUN (9-20) mg/dL Glucose (74-99) mg/dL POC Glucose (mg/dL) 163 H 193 H 133 H (70-110) mg/dL 03/05/24 03/05/24 03/05/24 Range/Units 06:39 06:39 11:11 WBC 12.2 H (3.8-10.6) k/uL Sodium 135 L (137-145) mmol/L BUN 22 H (9-20) mg/dL Glucose 124 H (74-99) mg/dL POC Glucose (mg/dL) 168 H (70-110) mg/dL Assessment and Plan Assessment: Acute hypoxemic respiratory failure secondary to acute COVID-19 infection/pneumonia. History of histiocytosis X with lung involvement. Former smoker. Diabetes mellitus. Hyperlipidemia. Hypertension. Hypothyroidism. Plan: Plan dated March 05, 2024. The patient is seen in room 373. The patient is currently on room air. He feels much better. His IV Decadron can be changed to p.o. Decadron. In my opinion, the patient could be discharged home. Will leave that up to the [facility] service. I do not believe the patient would benefit from remdesivir at this time. We will continue to follow should he not be discharged. Labs, x- rays, and all medications are reviewed. Time with Patient: Less than 30
[2024-03-05] MEDS: LOSARTAN 50 MG TAB PO SCH (12:32)
[2024-03-05 12:48] VITALS: BP 148/85; PULSE 88; TEMP 98.3
--- NOTE | 2024-03-05 13:05 | P.DS ---
Providers Date of admission: 03/03/24 21:38 Expected date of discharge: 03/05/24 Attending physician: Chris Urbina Consults: 03/03/24 21:36 Consult Physician Routine Consulting Provider: Moses Stewart Consult Reason/Comments: hypoxia Do you want consulting provider notified?: Yes 03/04/24 09:35 Consult Physician Routine Consulting Provider: Delfina Monet Consult Reason/Comments: COVID-19 pneumonia Do you want consulting provider notified?: Yes Primary care physician: Wilfred Weinberg [facility] Course: Discharge diagnoses; Acute hypoxemic respiratory failure COVID-19 pneumonia Hypertension Hyperlipidemia Diabetes mellitus Hospital course; patient is a 48-year-old gentleman with past medical history significant for hypertension, diabetes mellitus, hyperlipidemia who was recently diagnosed with COVID-19 on Wednesday coming to the hospital for shortness of breath. Patient stated that he was all right a few days ago when he started noticing getting short of breath. Patient was feeling sick. Denied any nausea or vomiting. Patient was complaining of lethargy and weakness. Patient denies any chest pain. There is no complaint orthopnea and PND. Patient was diagnosed with COVID-19 infection on Wednesday. Over the following days patient shortness of breath worsened, he was getting short of breath at rest as on exertion. Because of this worsening shortness of breath, patient came to the ER Initial lab work done in the ER showed WB 6.5, hemoglobin 16.5, platelet count 225, D-dimer 0.72, sodium 139, potassium 4.6, BUN 19, creatinine 0.93, calcium 8.7, bilirubin 0.7, AST 34, ALT 22, troponin 0.012, proBNP 167 procalcitonin 0.12 EKG done in the ER showed heart rate of , no ST segment elevation or depression seen, no T-wave inversions seen. Chest x-ray done in the ER showed multifocal airspace opacities concerning for pneumonia CT chest PE protocol done showed no acute pulmonary embolism, bilateral areas of groundglass opacities Patient admitted to internal medicine service 03/05. Patient seen and examined. Currently doing much better, not require any oxygen. ID eval the patient, did not think patient needs remdesivir. Being discharged on Decadron. Outpatient follow-up with PCP PHYSICAL EXAMINATION: GENERAL: The patient is alert and oriented x3, not in any acute distress. Well developed, well nourished. HEENT: Pupils are round and equally reacting to light. EOMI. No scleral icterus. No conjunctival pallor. Normocephalic, atraumatic. No pharyngeal erythema. No thyromegaly. CARDIOVASCULAR: S1 and S2 present. No murmurs, rubs, or gallops. PULMONARY: Chest is clear to auscultation, no wheezing or crackles. ABDOMEN: Soft, nontender, nondistended, normoactive bowel sounds. No palpable organomegaly. MUSCULOSKELETAL: No joint swelling or deformity. EXTREMITIES: No cyanosis, clubbing, or pedal edema. NEUROLOGICAL: Gross neurological examination did not reveal any focal deficits. SKIN: No rashes. Dictation was produced using [employer] dictation software. please excuse any grammatical, word or spelling errors. Patient Condition at Discharge: Good Plan - Discharge Summary Discharge Rx Participant: No New Discharge Prescriptions: New dexAMETHasone ORAL [Hexadrol] 6 mg PO DAILY #6 tab Continue DULoxetine HCL [Cymbalta] 60 mg PO DAILY Naproxen [Naprosyn] 500 mg PO DIRECTED PRN PRN Reason: Pain HYDROcodone/APAP 10-325MG [[place] 10-325] 1 tab PO DAILY Cholecalciferol (Vitamin D3) [Vitamin D3 (125 MCG = 5,000 IU)] 125 mcg PO DAILY Testosterone Cypionate [Depo-Testosterone] 150 mg IM Q14D Metoclopramide [Reglan] 10 mg PO BID Esomeprazole Magnesium [NexIUM 24Hr] 40 mg PO DAILY Clobetasol Lotion 0.05% Lotion 1 applic TOPICAL DAILY PRN PRN Reason: Rash Levothyroxine Sodium 88 mcg PO DAILY HYDROcodone/APAP 10-325MG [[place] 10-325] 1 tab PO BID PRN PRN Reason: Pain clonazePAM [KlonoPIN] 0.5 mg PO BID PRN PRN Reason: Anxiety Dextroamphetamine/Amphetamine [Adderall Xr 15 mg Capsule] 15 mg PO DAILY guaiFENesin [Mucinex] 1,200 mg PO BID Semaglutide [Ozempic] 1 mg SQ DIRECTED Lactulose [Constulose] 10 gm PO DAILY PRN PRN Reason: Constipation Slow-Mag 2000mg 2,000 mg PO DAILY Metoprolol Succinate (ER) [Toprol XL] 50 mg PO DAILY Losartan Potassium 100 mg PO DAILY bisacodyL [Dulcolax] 15 mg PO DAILY Desmopressin Intranasal [Ddavp Nasal [place]] 2 spr NASAL Q8H Discharge Medication List DULoxetine HCL [Cymbalta] 60 mg PO DAILY 03/06/16 [History] Cholecalciferol (Vitamin D3) [Vitamin D3 (125 MCG = 5,000 IU)] 125 mcg PO DAILY 07/01/22 [History] HYDROcodone/APAP 10-325MG [[place] 10-325] 1 tab PO DAILY 07/01/22 [History] Naproxen [Naprosyn] 500 mg PO DIRECTED PRN 07/01/22 [History] Testosterone Cypionate [Depo-Testosterone] 150 mg IM Q14D 07/01/22 [History] clonazePAM [KlonoPIN] 0.5 mg PO BID PRN 07/01/22 [History] Clobetasol Lotion 0.05% Lotion 1 applic TOPICAL DAILY PRN 03/04/24 [History] Desmopressin Intranasal [Ddavp Nasal [place]] 2 spr NASAL Q8H 03/04/24 [History] Dextroamphetamine/Amphetamine [Adderall Xr 15 mg Capsule] 15 mg PO DAILY 03/04/24 [History] Esomeprazole Magnesium [NexIUM 24Hr] 40 mg PO DAILY 03/04/24 [History] HYDROcodone/APAP 10-325MG [[place] 10-325] 1 tab PO BID PRN 03/04/24 [History] Lactulose [Constulose] 10 gm PO DAILY PRN 03/04/24 [History] Levothyroxine Sodium 88 mcg PO DAILY 03/04/24 [History] Losartan Potassium 100 mg PO DAILY 03/04/24 [History] Metoclopramide [Reglan] 10 mg PO BID 03/04/24 [History] Metoprolol Succinate (ER) [Toprol XL] 50 mg PO DAILY 03/04/24 [History] Semaglutide [Ozempic] 1 mg SQ DIRECTED 03/04/24 [History] Slow-Mag 2000mg 2,000 mg PO DAILY 03/04/24 [History] bisacodyL [Dulcolax] 15 mg PO DAILY 03/04/24 [History] guaiFENesin [Mucinex] 1,200 mg PO BID 03/04/24 [History] dexAMETHasone ORAL [Hexadrol] 6 mg PO DAILY #6 tab 03/05/24 [Rx] Follow up Appointment(s)/Referral(s): Wilfred Weinberg DO [Primary Care Provider] - 1-2 days Discharge Disposition: HOME SELF-CARE
--- NOTE | 2024-03-05 13:26 | P.PN ---
Subjective Progress Note Date: 03/05/24 Principal diagnosis: Reason for follow-up is COVID-19 pneumonia Patient is a 48-year-old male with a past medical history significant for diabetes mellitus hypertension hyperlipidemia pneumonia hypothyroidism did have a 2 previous episode of COVID-19 infection presented to hospital with a 5- day history of shortness of breath cough noticed to be hypoxic in the outpatient setting and was tested positive for COVID-19. On today's evaluation that is 03/05/2024, patient has been afebrile, patient is breathing comfortably and is currently on room air, patient cough is decreased intensity mostly dry in nature no nausea vomiting no abdominal pain or diarrhea feeling better. Patient white count is 12.2, creatinine 0.75 Objective - Vital Signs Vital signs: Vital Signs Temp 98.5 F 03/05/24 09:55 Pulse 81 03/05/24 09:55 Resp 18 03/05/24 09:55 BP 145/71 03/05/24 09:55 Pulse Ox 92 L 03/05/24 09:55 FiO2 Intake & Output 03/04/24 03/05/24 03/05/24 19:59 06:59 18:59 Intake Total Balance Weight Intake: Oral Other: Voiding Method # Voids - Exam GENERAL DESCRIPTION: Middle-age male lying in bed in no distress RESPIRATORY SYSTEM: Unlabored breathing , decreased intensity of breath sounds, no wheeze HEART: S1 S2 regular rate and rhythm , ABDOMEN: Soft , no tenderness EXTREMITIES: No edema feet - Labs CBC & Chem 7: 03/05/24 06:39 03/05/24 06:39 Labs: Abnormal Lab Results - Last 24 Hours (Table) 03/04/24 03/04/24 03/05/24 Range/Units 16:47 20:09 05:52 WBC (3.8-10.6) k/uL Sodium (137-145) mmol/L BUN (9-20) mg/dL Glucose (74-99) mg/dL POC Glucose (mg/dL) 163 H 193 H 133 H (70-110) mg/dL 03/05/24 03/05/24 03/05/24 Range/Units 06:39 06:39 11:11 WBC 12.2 H (3.8-10.6) k/uL Sodium 135 L (137-145) mmol/L BUN 22 H (9-20) mg/dL Glucose 124 H (74-99) mg/dL POC Glucose (mg/dL) 168 H (70-110) mg/dL Assessment and Plan (1) Pneumonia due to COVID-19 virus Current Visit: Yes Status: Acute Code(s): U07.1 - COVID-19; J12.82 - PNEUMONIA DUE TO CORONAVIRUS DISEASE 2018 SNOMED Code(s): 422900867795721012 Plan: 1patient presented to hospital with increasing shortness of breath cough and was hypoxic in the outpatient setting secondary to acute COVID-19 pneumonia as seen on the chest x-ray as well as CT angiogram of the chest however the patient seem to have shown rather quick improvement and is down to only 2 L cannula oxygen and is feeling better hence we will recommend to continue with current supportive treatment and hold on adding a remdesivir at this point 2-patient patient has shown clinical improvement to continue with the dexamethasone Lovenox zinc and ascorbic acid no need for remdesivir 3leukocytosis more likely steroid related Multiple question concern answered Dictation was produced using [employer] dictation software. please excuse any gram matical, word or spelling errors. Time with Patient: Less than 30
[2024-03-06] MEDS ORDERED: dexAMETHasone 2 MG TAB PO SCH (09:00)
[2024-03-11] MEDS ORDERED: TESTOSTERONE CYPIONATE 200 MG/ML 1ML VIAL IM SCH (09:00)
== END 2024-03-05 15:00 | disposition home or self-care (01) | DRG 177 ==
LOC: EC 20:28 → 3SCARD 21:38
PROVIDERS: ADMIT Hospitalist; ATTEND Hospitalist
PROC: 3E0333Z Introduction of Anti-inflammatory into Peripheral Vein, Percutaneous Approach (ICD-10-PCS; principal; 2024-03-04)
DX: U07.1 COVID-19 (principal); J12.82 Pneumonia due to coronavirus disease 2019; J96.01 Acute respiratory failure with hypoxia; E03.9 Hypothyroidism, unspecified; E11.9 Type 2 diabetes mellitus without complications; E78.5 Hyperlipidemia, unspecified; F41.9 Anxiety disorder, unspecified; I10 Essential (primary) hypertension; Z79.890 Hormone replacement therapy; Z79.899 Other long term (current) drug therapy; Z87.891 Personal history of nicotine dependence; Z92.21 Personal history of antineoplastic chemotherapy; Z92.3 Personal history of irradiation
CPT/HCPCS: 36415; 71045; 71275; 80048; 80053; 83036; 83605; 83735; 83880; 84100; 84145; 84484; 85025; 85027; 85379; 85610; 85730; 93005; 94640; 94760; 96374; 99291